=== PATIENT | female | born 1995 | race Caucasian/White ===

== ENCOUNTER 2017-12-04 02:30 | Emergency (ER) | payer SELFPAY ==
[~2017-12-04] VITALS: Ht 172.7 cm; Wt 65.8 kg
[2017-12-04 02:30] VITALS: BP 123/50
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
== END 2017-12-04 02:45 ==
LOC: MED 02:30
DX: Z02.89 Encounter for other administrative examinations (principal)
CPT/HCPCS: 99283